=== PATIENT | female | born 1980 | race Caucasian/White ===

== ENCOUNTER → 2018-12-20 | Outpatient (CLI) | payer OTHER ==
[~2018-12-20] MED LIST: ACET500 PO; ACYC400 PO; CYCL10 PO; HYDACE5 PO; IBUP800 PO; NAPR500 PO; NAPR550 PO; OXYACE7.5T PO; PENVK500 PO
== END | disposition home or self-care (01) ==
LOC: LAB SHORT 08:11 → PLD 08:11
DX: N92.1 Excessive and frequent menstruation with irregular cycle (principal)
CPT/HCPCS: 88305

== ENCOUNTER 2019-02-12 07:12 | Day surgery (SDC) | payer OTHER ==
[~2019-02-12] VITALS: Wt 67.0 kg
--- NOTE | 2019-02-12 07:33 | NUR ---
Ambulatory in Day Surgery History, Chart, Medications and Allergies reviewed before start of procedure. Lungs clear T/O to Auscultation. Patient confirms NPO status and agrees with scheduled surgery.
--- NOTE | 2019-02-12 18:20 | NUR ---
SHIFT SUMMARY PT POD 0 LAVH. PAIN MANAGED WITH 2 ROXICODONE Q4, MEDICATED TWICE. SCHEDUALED TYELNOL. NEAL DC'D AT APROX 1415-PT VOIDED SMALL AMT APROX 30ML ONCE, BLADDER SCAN SHOWED 0ML. TOLERATING REGULAR DIET WITH NO N/V. AMBULATING IN HALLWAYS WITHOUT DIFFICULTY. PLAN IS TO DC HOME TONIGHT IF PT ABLE TO VOID, IF NOT ABLE TO VOID THIS EVENING PT WILL DC HOME TOMORROW.
[2019-02-12] MEDS ORDERED: ROXICODONE5 MG PO (19:20)
[2019-02-12] MEDS ORDERED: DOCU100 PO (19:20)
[2019-02-12] MEDS ORDERED: ACET325 PO (19:21)
== END 2019-02-12 20:30 | disposition home or self-care (01) ==
LOC: ORSCMMR 07:12 → ORD 07:30 → ORSCMMR 07:30 → SURS 10:19 → ORSCMMR 20:30
PROVIDERS: Obstetrics & Gynecology
PROC: 0UT9FZZ Resection of Uterus, Via Natural or Artificial Opening With Percutaneous Endoscopic Assistance (ICD-10-PCS; principal; 2019-02-12 07:30)
PROC: 0UT7FZZ Resection of Bilateral Fallopian Tubes, Via Natural or Artificial Opening With Percutaneous Endoscopic Assistance (ICD-10-PCS; principal; 2019-02-12 07:30)
DX: N92.0 Excessive and frequent menstruation with regular cycle (principal); R10.2 Pelvic and perineal pain; Q50.5 Embryonic cyst of broad ligament; Z87.891 Personal history of nicotine dependence; D68.0 Von Willebrand disease; Z79.899 Other long term (current) drug therapy
CPT/HCPCS: 88307; J0690; J1100; J1885; J2250; J2405; J2597; J2710; J3010; J7120

== ENCOUNTER → 2019-08-13 | Outpatient (CLI) | payer OTHER, SELFPAY ==
[~2019-08-13] MED LIST changes: +ACET325 PO; +Cipro500 MG PO; +DOCU100 PO; +Flagyl500 MG PO; +ROXICODONE5 MG PO
[2019-08-13 10:42] LABS: Source, Urine Clean Catch
[2019-08-13 15:56] LABS: Bilirubin, Urine Neg (Neg); Blood, Urine Neg (Neg); Glucose Qualitative, Urine Neg (Neg); Ketones, Urine 1+ (Neg); Leukocyte Esterase, Urine 1+ (Neg); Nitrite, Urine Neg (Neg); Protein, Urine Neg (Neg); Urobilinogen, Urine 1+ (Normal)
[2019-08-13 16:16] LABS: Appearance, Urine Clear (Clear); Color, Urine Yellow (P-Yellow)
[2019-08-13 16:18] LABS: Bacteria Few /hpf; Mucus Light ({null, 0-Heavy}); Squamous Epithelial Cells Few /hpf (Few)
== END | disposition home or self-care (01) ==
LOC: LAB 10:02 → LAB SHORT 10:02
PROVIDERS: Obstetrics & Gynecology
DX: R10.2 Pelvic and perineal pain (principal); R30.0 Dysuria; G89.29 Other chronic pain
CPT/HCPCS: 81001; 87086

== ENCOUNTER 2019-08-14 16:24 | Emergency (ER) | payer OTHER, SELFPAY ==
[~2019-08-14] VITALS: Ht 170.2 cm; Wt 72.6 kg
[~2019-08-14 16:24] MED LIST changes: -Cipro500 MG PO; -Flagyl500 MG PO
[2019-08-14 17:27] LABS: Source, Urine Clean Catch
[2019-08-14 17:39] LABS: BASOPHILS ABSOLUTE AUTO 0.06 K/mm3 (0.00-0.23); BASOPHILS PERCENT AUTO 1 % (0-2); EOSINOPHILS ABSOLUTE AUTO 0.03 K/mm3 (0.00-0.68); EOSINOPHILS PERCENT AUTO 0 % (0-6); Hematocrit 41.3 % (33.0-51.0); Hemoglobin 14.1 g/dL (11.5-16.0); IMMATURE GRAN ABSOLUTE AUTO 0.02 K/mm3 (0.00-0.10); IMMATURE GRAN PERCENT AUTO 0 % (0-1); LYMPHOCYTES ABSOLUTE AUTO 2.69 K/mm3 (0.84-5.20); LYMPHOCYTES PERCENT AUTO 22 % (21-46); MONOCYTES ABSOLUTE AUTO 0.88 K/mm3 (0.16-1.47); MONOCYTES PERCENT AUTO 7 % (4-13); Mean Corpuscular HGB 32.1 pg (26.0-34.0); Mean Corpuscular HGB Conc 34.1 g/dL (31.5-36.5); Mean Corpuscular Volume 94 fL (80-100); Mean Platelet Volume 9.8 fL (9.1-12.4); NEUTROPHILS ABSOLUTE AUTO 8.82 K/mm3 (1.96-9.15); NEUTROPHILS PERCENT AUTO 71 % (41-73); Platelet Count 348 K/mm3 (150-400); RDW Coefficient Variation 11.9 % (11.7-14.2); RDW Standard Deviation 42.2 fL (35.1-46.3); Red Blood Cell Count 4.39 M/mm3 (3.80-5.20)
[2019-08-14 17:43] LABS: Appearance, Urine Clear (Clear); Bilirubin, Urine Neg (Neg); Blood, Urine 1+ (Neg); Color, Urine Yellow (P-Yellow); Glucose Qualitative, Urine Neg (Neg); Ketones, Urine Neg (Neg); Leukocyte Esterase, Urine Neg (Neg); Nitrite, Urine Neg (Neg); Protein, Urine Neg (Neg); Specific Gravity, Urine 1.005 (1.003-1.022); Urobilinogen, Urine NORM (Normal)
[2019-08-14 18:00] LABS: Bacteria Few /hpf; Red Blood Cells, Urine 0-2 /hpf (0-2); Squamous Epithelial Cells Few /hpf (Few); White Blood Cells, Urine 0-2 /hpf (0-5)
[2019-08-14 18:08] LABS: Alanine Aminotransfer (ALT/SGP 19 U/L (12-78); Albumin, Blood 4.2 g/dL (3.4-5.0); Albumin/Globulin Ratio 1.2 (0.8-1.8); Alk Phos 72 U/L (50-136); Anion Gap 6 mmol/L (6-16); Aspartate Aminotrans (AST/SGOT 11 U/L (12-37); Bilirubin, Total 0.3 mg/dL (0.1-1.0); Blood Urea Nitrogen 4 mg/dL (8-24); Bun/Creatinine Ratio 6.3 (12.0-20.0); CO2, Blood 25 mmol/L (21-32); Calcium, Blood 8.9 mg/dL (8.5-10.1); Chloride, Blood 108 mmol/L (98-108); Creatinine, Blood 0.63 mg/dL (0.40-1.00); Globulin, Blood 3.5 g/dL (2.2-4.0); Glomerular Filtration Rate >60 (60-); Glucose, Blood 88 mg/dL (70-99); Potassium, Blood 3.6 mmol/L (3.5-5.5); Sodium, Blood 139 mmol/L (136-145); Total Protein, Blood 7.7 g/dL (6.4-8.2)
[2019-08-14] MEDS ORDERED: Cipro500 MG PO (20:46)
[2019-08-14] MEDS ORDERED: Flagyl500 MG PO (20:46)
[2019-08-14] MEDS ORDERED: IBUP800 PO (20:46)
== END 2019-08-14 21:04 | disposition home or self-care (01) ==
LOC: ER 16:24
PROVIDERS: Physician Assistant
DX: K57.32 Diverticulitis of large intestine without perforation or abscess without bleeding (principal); F17.200 Nicotine dependence, unspecified, uncomplicated
CPT/HCPCS: 36415; 74176; 80053; 81001; 85025; 99284-25; A9270-GY

== ENCOUNTER → 2020-04-07 | Outpatient (CLI) | payer OTHER ==
[~2020-04-07] MED LIST changes: +Cipro500 MG PO; +Flagyl500 MG PO
== END | disposition home or self-care (01) ==
LOC: PLD 13:19 → LAB SHORT 13:19
DX: L98.9 Disorder of the skin and subcutaneous tissue, unspecified (principal)
CPT/HCPCS: 88305

== ENCOUNTER → 2020-09-15 | Outpatient (CLI) | payer OTHER | LOC: LAB EV 13:36 → LAB SHORT 13:36 | DX: N39.0 Urinary tract infection, site not specified (principal) | CPT/HCPCS: 87077; 87086; 87186 ==

== ENCOUNTER 2023-04-07 09:18 | Day surgery (SDC) | payer OTHER ==
[~2023-04-07] VITALS: Ht 170.2 cm; Wt 72.4 kg
[~2023-04-07 09:18] MED LIST changes: +AMOCLA875 PO
[2023-04-07] MEDS ORDERED: BENADRYL25 MG (09:47)
[2023-04-07] MEDS ORDERED: PROBIOTIC1 EA13 (09:47)
[2023-04-07 12:53] VITALS: BP 102/67
== END 2023-04-07 12:35 | disposition home or self-care (01) ==
LOC: ORSCSDS 09:18
PROVIDERS: Internal Medicine Gastroenterology
PROC: 0DJD8ZZ Inspection of Lower Intestinal Tract, Via Natural or Artificial Opening Endoscopic (ICD-10-PCS; principal; 2023-04-07 10:45)
DX: K59.00 Constipation, unspecified (principal); K57.30 Diverticulosis of large intestine without perforation or abscess without bleeding; Z86.010 Personal history of colon polyps; Z87.19 Personal history of other diseases of the digestive system; Z79.899 Other long term (current) drug therapy
CPT/HCPCS: J2704; J7120